=== PATIENT | female | born 1960 | race African-American/Black ===

== ENCOUNTER → 2022-11-24 | Day surgery (SDC) | payer MEDICARE, MEDICAID ==
[~2022-11-24] VITALS: Ht 157.5 cm; Wt 91.2 kg
[~2022-11-24] MED LIST: ALBU18HF2 IH; ALPR2TAB2 PO; ASPI-1497 PO; ATOR20TA65 PO; BIMA2.5D4 BOTHEYE; BRIM15DR2 BOTHEYE; BUPR200T2 PO; CAND16TA28 PO; CARV25TA47 PO; CHOL500063 PO; CYAN250010 PO; DICL2.5D8 BOTHEYE; DOCU-150 PO; FENTANYL CITRATE/PF 50MCG/ML 2ML VIAL IV PRN; FENTANYL CITRATE/PF 50MCG/ML 2ML VIAL ONE; FLOV22 IH; FLUO40CA8 PO; FURO20TA4 PO; LACTATED RINGERS 1,000 ML IV SCH; LANS30TA4 PO; LIDOCAINE HCL 1% 10 MG/ML 10ML VIAL ONE; METOCLOPRAMIDE HCL 10MG/2ML VIAL ONE; MIDAZOLAM HCL 2 MG/2 ML VIAL ONE; MULT-1146 PO; NETA2.5D BOTHEYE; NITR0.4T49 SL; OMEP20CA14 PO; ONDANSETRON HCL 4MG/2ML INJ IV PRN; ONDANSETRON HCL 4MG/2ML INJ ONE; PHENYLEPHRINE HCL 10 MG/ML 1ML (IV VIAL) IV ONE; POTA-205 PO; PROPOFOL 200MG/20ML VIAL IV ONE; TIMO5DRO32 BOTHEYE; TOPUD PO; TRAM50TA3 PO; VITA100T PO
[2022-11-24 10:40] LABS: BASOPHILS % 0.6 % (0.0-2.0); EOSINOPHILS % 1.8 % (0.0-5.0); HEMATOCRIT. 38.9 % (36.0-48.0); HEMOGLOBIN. 12.9 g/dL (12.0-16.0); LYMPHOCYTES % 37.1 % (20.0-50.0); MEAN CORPUSCULAR HEMOGLOBIN 29.3 pg (28.0-32.0); MEAN CORPUSCULAR VOLUME 88.1 fL (81.0-99.0); MONOCYTES % 5.6 % (2.0-8.0); NEUTROPHILS % 54.9 % (40.0-76.0); PLATELET 249 x1000/uL (130-400); RED BLOOD CELL COUNT 4.41 mill/uL (4.2-5.4); RED CELL DISTRIBUTION WIDTH 12.9 % (11.6-14.6)
[2022-11-24 10:51] LABS: CHLORIDE 111 mEq/L (98-107)
[2022-11-24 10:54] LABS: PARTIAL THROMBOPLASTIN TIME 26.9 sec (23.4-31.0); PROTHROMBIN TIME 10.5 sec (9.6-11.0)
[2022-11-24 11:10] LABS: CLARITY URINE CLEAR (CLEAR); COLOR URINE YELLOW (YELLOW); KETONES URINE NEGATIVE (NEGATIVE); LEUKOCYTE ESTERASE URINE NEGATIVE (NEGATIVE); NITRITE URINE NEGATIVE (NEGATIVE); OCCULT BLOOD URINE NEGATIVE (NEGATIVE); PH URINE 7.5 (4.5-8.0); PROTEIN URINE NEGATIVE (NEGATIVE); UROBILINOGEN URINE 0.2 E.U./dL (0.2-1.0)
[2022-11-24 11:11] LABS: UCG SCREEN NEGATIVE
[2022-11-24 13:58] VITALS: BP 159/103
== END | disposition home or self-care (01) ==
LOC: OR 08:16
PROVIDERS: ATTEND Obstetrics & Gynecology Obstetrics
DX: N84.1 Polyp of cervix uteri (principal); I11.0 Hypertensive heart disease with heart failure; I50.9 Heart failure, unspecified; E78.00 Pure hypercholesterolemia, unspecified; J45.909 Unspecified asthma, uncomplicated; G47.30 Sleep apnea, unspecified; Z88.2 Allergy status to sulfonamides; Z88.8 Allergy status to other drugs, medicaments and biological substances; Z79.899 Other long term (current) drug therapy; Z98.890 Other specified postprocedural states; Z79.82 Long term (current) use of aspirin; Z82.49 Family history of ischemic heart disease and other diseases of the circulatory system
CPT/HCPCS: 36415; 58120; 80048; 81003; 81025; 85025; 85610; 85730; 88305; A4217; J2250; J2370; J2405; J2704; J2765; J3010; J3490; Z7610